=== PATIENT | female | born 1970 | race African-American/Black ===

== ENCOUNTER → 2020-02-06 | Outpatient (CLI) | payer BC ==
[2014-10-06 12:15] VITALS: BP 138/66
[~2020-02-06] MED LIST: ALLO100T PO; AMLO5TAB10 PO; ATOR20TA58 PO; DILT360C PO; DOXE50CA PO; FERR325T58 PO; FURO-69 PO; GLIM4TAB8 PO; HYDR25TA PO; INSU100I13 SQ; LEVO500T59 PO; LIRA0.6P2 SQ; METO200T46 PO; PIOG15TA42 PO; PRED2.5T PO; TRIA5PAS5 DT
--- NOTE | 2020-02-06 17:26 | RAD ---
DATE: 02/06/2020 10:10 AM EXAM: MAMMO VIKRAM SCREENING BILATERAL HISTORY: Screening COMPARISON: 03/07/2016 Bilateral CC and MLO views of the breasts were performed. Bilateral breast tomosynthesis was performed in CC and MLO projections. This study was interpreted with the benefit of Computerized Aided Detection (CAD). FINDINGS: Breast Density: FATTY The Breast Parenchyma is primarily fatty replaced. Breast parenchyma level density A. No suspicious masses, microcalcifications or architectural distortion is present to suggest malignancy in either breast. The visualized axillae are unremarkable. IMPRESSION: No mammographic evidence of malignancy. BI-RADS CATEGORY: 1 NEGATIVE RECOMMENDED FOLLOW-UP: 12M 12 MONTH FOLLOW-UP Annual screening mammography is recommended, unless clinically indicated sooner based on symptoms or change in physical exam. PQRS compliance statement: Patient information was entered into a reminder system with a target due date 02/06/2021 for the next mammogram. Mammography is a sensitive method for finding small breast cancers, but it does not detect them all and is not a substitute for careful clinical examination. A negative mammogram does not negate a clinically suspicious finding and should not result in delay in biopsying a clinically suspicious abnormality. "Our facility is accredited by the [employer] Mammography Program."
== END | disposition home or self-care (01) ==
LOC: MAMMO 09:53
PROVIDERS: ATTEND Physician Assistant
DX: Z12.31 Encounter for screening mammogram for malignant neoplasm of breast (principal)
CPT/HCPCS: 77063; 77067

== ENCOUNTER → 2021-03-10 | Outpatient (CLI) | payer BC ==
[2014-10-06 12:15] VITALS: BP 138/66
[~2021-03-10] MED LIST changes: +AMLO-186 PO; -AMLO5TAB10 PO
--- NOTE | 2021-03-11 10:38 | RAD ---
PROCEDURE: MG 2D BILAT SCREENING HISTORY: The patient is 50 years old and is seen for Reason: SCREENING / Spl. Instructions: / Histor y: . COMPARISON: February 06, 2020 TECHNIQUE: CC and MLO views of both breasts were obtained. Images were processed by the [employer] computer-aided detection system. DENSITY: There are scattered fibroglandular densities. FINDINGS: No developing mass, suspicious calcifications or architectural distortion. Result previo usly seen left upper outer breast mass. IMPRESSION: Negative. No evidence of malignancy. Recommend annual screening mammograms per [employer] guidelines. BI-RADS category 1 Negative Patient entered into a reminder system for annual screening mammogram. Electronically signed by: Enmanuel Miles DO (03/11/2021 10:36 AM) [id number]
== END ==
LOC: MAMMO 11:09
DX: Z12.31 Encounter for screening mammogram for malignant neoplasm of breast (principal)
CPT/HCPCS: 77067

== ENCOUNTER → 2021-03-22 | Day surgery (SDC) | payer BC ==
[~2021-03-22] MED LIST changes: +CALC0.2530 PO; +DOXA2TAB2 PO; +DOXA8TAB59 PO; +IPRATRPIUM/ALBUTEROL 0.5/2.5MG 3 ML NEBU. NEB PRN; +IV NORMAL SALINE 1,000ML 1,000 ML IV ONE; +IV RINGERS SOLUTION,LACTATED 1,000 ML IV SCH; +LIDOCAINE 2% PF 5 ML VIAL. ONE; +LOSA50TA86 PO; +MECO10005 PO; +MULT-445 PO; +OMEG-33 PO; +ONDANSETRON PF 4 MG/2 ML VIAL. IV PRN; +PROPOFOL 10,000 MCG/ML (20ML) VIAL IV ONE; +[UNRECOGNIZED DRUG - OTHER] PO
[2021-03-22 08:51] LABS: CALCIUM 8.5 mg/dL (8.5-10.1); CREATININE 4.9 mg/dL (0.6-1.0); GFR 11.3; POTASSIUM 3.8 mmol/L (3.5-5.1)
[2021-03-22 09:33] VITALS: BP 162/82
--- NOTE | 2021-03-23 17:11 | PATHOLOGY ---
[facility] Accession Number: [id number] . 01 Material submitted: . PART A: cecum - CECUM POLYP PART B: colon - ASCENDING POLYP. Modifiers: ascending PART C: colon - DESCENDING COLON POLYP X2. Modifiers: descending . 01 Clinical history: . SCREENING COLONOSCOPY . 02 Diagnosis: A. Colon biopsy, cecal polyp: - Diminutive tubular adenoma. - Hyperplastic mucosal-associated lymphoid aggregate. . B. Colon biopsies, ascending colon polyp: - Tubular adenoma. . C. Colon biopsies, descending colon polyp x 2: - Hyperplastic polyp (1). - Mucosal neuroma (1). ([facility]; 03/23/2021) [facility] 03/23/2021 1630 Local . 02 Comment: There is no high-grade dysplasia or evidence of malignancy. ([facility]:saroj; 03/23/2021) . 02 Electronically signed: . Ruperto Clark MD, Pathologist NPI- [id number] . 01 Gross description: . A. Received in formalin labeled "Juan C Martinez, cecum polyp" is a diaz-brown soft tissue fragment measuring 0.4 x 0.4 x 0.1 cm. The specimen is submitted entirely in A1. . B. Received in formalin labeled "Juan C Martinez, ascending polyp" are multiple diaz-brown soft tissue fragments measuring in aggregate 0.5 x 0.4 x 0.1 cm. The specimen is submitted entirely in B1. . C. Received in formalin labeled "Juan C Martinez, descending colon polyp x 2" are 2 diaz-brown soft tissue fragments measuring in aggregate 0.7 x 0.6 x 0.2 cm. The specimen is submitted entirely in C1. ([facility]; 03/22/2021) RADHA/RADHA 03/23/[address] [place] [address] . 02 Pathologist provided ICD-10: D12.0, D12.2, K63.5, D36.10 . 02 CPT . 287392, 420841, 699325 Specimen Comment: A courtesy copy of this report has been sent to [phone], [phone] Specimen Comment: [id number] Specimen Comment: Report sent to / DR MORENO Performed at: 01 [facility] [address] [facility] [address], [place] [id number] MD Caesar Strauss MD Phone: [phone] Performed at: [facility] [address] [place], [place] [id number] MD Ruperto Clark MD Phone: [phone]
== END | disposition home or self-care (01) ==
LOC: SURG 08:08
PROVIDERS: ATTEND Internal Medicine Gastroenterology
DX: Z12.11 Encounter for screening for malignant neoplasm of colon (principal); K57.30 Diverticulosis of large intestine without perforation or abscess without bleeding; D12.0 Benign neoplasm of cecum; D12.2 Benign neoplasm of ascending colon; D36.10 Benign neoplasm of peripheral nerves and autonomic nervous system, unspecified; K63.89 Other specified diseases of intestine; I12.9 Hypertensive chronic kidney disease with stage 1 through stage 4 chronic kidney disease, or unspecified chronic kidney disease; E11.22 Type 2 diabetes mellitus with diabetic chronic kidney disease; N18.4 Chronic kidney disease, stage 4 (severe); E66.9 Obesity, unspecified; Z72.89 Other problems related to lifestyle; Z79.899 Other long term (current) drug therapy; Z79.4 Long term (current) use of insulin; Z87.440 Personal history of urinary (tract) infections
CPT/HCPCS: 36415; 45380; 45385; 80048; 88305; J2001; J2704

== ENCOUNTER → 2021-03-29 | Outpatient (CLI) | payer BC ==
[2021-03-22 09:33] VITALS: BP 162/82
[~2021-03-29] MED LIST changes: -IPRATRPIUM/ALBUTEROL 0.5/2.5MG 3 ML NEBU. NEB PRN; -IV NORMAL SALINE 1,000ML 1,000 ML IV ONE; -IV RINGERS SOLUTION,LACTATED 1,000 ML IV SCH; -LIDOCAINE 2% PF 5 ML VIAL. ONE; -ONDANSETRON PF 4 MG/2 ML VIAL. IV PRN; -PROPOFOL 10,000 MCG/ML (20ML) VIAL IV ONE
--- NOTE | 2021-03-29 12:55 | RAD ---
EXAMINATION: US RENAL DUPLEX INDICATION: 51 years, Female, atherosclerosis of renal artery, chronic kidney disease stage IV. COMPARISON: None TECHNIQUE: Grayscale, color and spectral doppler evaluation of the kidneys and renal arteries was per formed. FINDINGS: AORTIC VELOCITY: 108 RIGHT KIDNEY: MEASURES: 9.2 x 4.9 x 5.3. MORPHOLOGY/PARENCHYMA: Normal corticomedullary differentiation with no shadowing calculus or discrete masses. COLLECTING SYSTEM: No hydronephrosis. RIGHT RENAL ARTERY PEAK SYSTOLIC AND END DIASTOLIC VELOCITIES IN CM/S: PROX PSV/EDV: 101 cm/s, RI 0.7. MID PSV/EDV: 120 cm/s, RI 0.7. DISTAL PSV/EDV: 114 cm/s, RI 0.8. RENAL VEIN: Patent. LEFT KIDNEY: MEASURES: 9.4 x 5.3 x 5.1. MORPHOLOGY/PARENCHYMA: Normal corticomedullary differentiation. There is a 4.4 x 3.9 x 4.0 cm simple appearing cyst exophytic from the interpolar kidney. COLLECTING SYSTEM: No hydronephrosis. LEFT RENAL ARTERY PEAK SYSTOLIC AND END DIASTOLIC VELOCITIES IN CM/S: PROX PSV/EDV: 123 cm/s, RI 0.8. MID PSV/EDV: 87 cm/s, RI 0.8. DISTAL PSV/EDV: 74 cm/s, right 0.7. RENAL VEIN: Patent OTHER: Underdistended which limits evaluation. IMPRESSION: 1. No evidence of renal artery stenosis. 2. No hydronephrosis or shadowing calculi in either kidney. 3. Simple 4.4 cm left renal cyst Electronically signed by: Jose Armando Matthew MD (03/29/2021 12:52 PM) [id number]
== END ==
LOC: US 09:46
PROVIDERS: ATTEND Nurse Practitioner Adult Health
DX: N28.1 Cyst of kidney, acquired (principal); N18.4 Chronic kidney disease, stage 4 (severe); I70.1 Atherosclerosis of renal artery
CPT/HCPCS: 76770

== ENCOUNTER → 2021-04-23 | Outpatient (CLI) | payer BC ==
[2021-03-22 09:33] VITALS: BP 162/82
--- NOTE | 2021-04-23 13:25 | RAD ---
US DPLX VENOUS EXTREMITY LOWER RT 04/23/2021 1:00 PM Clinical Information: Right leg swelling . Comparison: None. Technique: Multiple grayscale, color Doppler, and spectral Doppler sonographic images of the lower ex tremity venous structures were obtained. Findings: The right common femoral, femoral, and popliteal veins exhibit normal compression, respiratory phasic ity, and augmentation. No intraluminal thrombi are identified. Color Doppler flow is demonstrated in the right posterior tibial veins. Greater saphenous vein patent at the saphenofemoral junction. Impression: 1. No evidence of deep venous thrombosis. Electronically signed by: Umm Alonso MD (04/23/2021 1:22 PM) [id number]
== END ==
LOC: PMG 12:47
PROVIDERS: ATTEND Physician Assistant
DX: M79.89 Other specified soft tissue disorders (principal)
CPT/HCPCS: 93971

== ENCOUNTER → 2021-06-29 | Outpatient (CLI) | payer BC ==
[2021-03-22 09:33] VITALS: BP 162/82
--- NOTE | 2021-06-29 10:56 | RAD ---
AP and Lateral Views of the Chest 06/29/2021 9:50 AM Indication: Reason: PRE OP IMAGING FOR PORT PLACEMENT ON 07/01/21 / Spl. Instructions: / History: Comparison: Chest radiograph November 17, 2014 FINDINGS: Linear opacity in left midlung favor scarring or atelectasis. No pneumothorax or pleural ef fusion is seen. No other focal infiltrate is seen. No acute osseous abnormality is identified. IMPRESSION: Mild scarring or atelectasis in the left midlung. No other acute cardiopulmonary process is identified Electronically signed by: Kwesi Hoffman MD (06/29/2021 10:53 AM) [id number]
== END ==
LOC: RAD 09:48
PROVIDERS: ATTEND Nurse Practitioner Adult Health
DX: N18.4 Chronic kidney disease, stage 4 (severe) (principal)
CPT/HCPCS: 71046